=== PATIENT | male | born 1985 | race Asian ===

== ENCOUNTER 2020-02-09 08:00 | Outpatient (CLI) | payer OTHER ==
--- NOTE | 2020-02-09 21:37 | XRAY Report ---
Reason: LEFT KNEE PAIN Procedure Date: 02/09/2020 Accession Number: [id number] / [id number] Procedure: WCP - Knee 2 View LT CPT Code: Final Report FULL RESULT: EXAM: LEFT KNEE RADIOGRAPHY EXAM DATE: 02/09/2020 11:07 AM. CLINICAL HISTORY: LEFT knee pain. History of left knee injury in 2013. Continued pain. COMPARISON: None. TECHNIQUE: 2 views. FINDINGS: Bones: Normal. No fractures or bone lesions. Joints: Normal. No effusion. No subluxations. Soft Tissues: Normal. No soft tissue swelling. IMPRESSION: 1. No osseous abnormalities. RADIA
== END 2020-02-09 23:59 | disposition home or self-care (01) ==
LOC: DI.WCP 08:00
PROVIDERS: ATTEND Family Medicine
DX: M25.562 Pain in left knee (principal)

== ENCOUNTER 2020-12-09 07:00 | Outpatient (CLI) | payer OTHER ==
[2020-12-09 18:24] LABS: BASOPHILS # (AUTO) 0.1 10^3/uL (0.0-0.1); BASOPHILS % (AUTO) 1.7 %; EOSINOPHILS # (AUTO) 0.2 10^3/uL (0.0-0.7); EOSINOPHILS % (AUTO) 3.2 %; HCT - HEMATOCRIT 48.2 % (42.0-52.0); HGB - HEMOGLOBIN 15.7 g/dL (14.0-18.0); LYMPHOCYTES % (AUTO) 30.5 %; MEAN CORPUSCULAR HEMOGLOBIN 31.1 pg (27.0-31.0); MEAN CORPUSCULAR HGB CONC 32.6 g/dL (32.0-36.0); MEAN CORPUSCULAR VOLUME 95.4 fL (80.0-94.0); MEAN PLATELET VOLUME 9.6 fL (7.4-11.4); MONOCYTES # (AUTO) 0.6 10^3/uL (0.0-1.0); NEUTROPHILS # (AUTO) 3.6 10^3/uL (1.5-6.6); NEUTROPHILS % (AUTO) 55.3 %; PLT - PLATELET COUNT 283 10^3/uL (130-450); RED BLOOD COUNT 5.05 10^6/uL (4.70-6.10); RED CELL DISTRIBUTION WIDTH 12.2 % (12.0-15.0); WHITE BLOOD COUNT 6.6 x10^3/uL (4.8-10.8)
[2020-12-09 18:51] LABS: ALBUMIN 4.8 g/dL (3.2-5.5); ALBUMIN/GLOBULIN RATIO 1.7 (1.0-2.2); BILIRUBIN,TOTAL 1.1 mg/dL (0.2-1.0); CALCIUM 9.4 mg/dL (8.5-10.3); CREATININE 1.2 mg/dL (0.6-1.2); POTASSIUM 4.5 mmol/L (3.5-5.0); TOTAL PROTEIN 7.7 g/dL (6.7-8.2)
== END 2020-12-09 23:59 | disposition home or self-care (01) ==
LOC: LAB.WCP 07:00
PROVIDERS: ATTEND Family Medicine
DX: F41.9 Anxiety disorder, unspecified (principal); F32.9 Major depressive disorder, single episode, unspecified
CPT/HCPCS: 36415; 80053; 85025

== ENCOUNTER 2023-10-15 12:38 | Outpatient (CLI) | payer OTHER ==
--- NOTE | 2023-10-15 18:03 | MRI Report ---
PROCEDURE: LUMBAR SPINE WO INDICATIONS: LUMBAR RADICULOPATHY TECHNIQUE: Noncontrast sagittal T1 spin echo and T2 fast echo, sagittal STIR, axial T1 and T2 fast spin echo thr ough the lumbar spine. In cases with scoliosis, additional coronal T2 fast spin echo may be performe d. COMPARISON: Correlation is made with the accompanying cervical spine MRI. FINDINGS: Image quality: Excellent. Alignment and Curvature: There is normal bony alignment. Bone Marrow: Marrow is of normal overall signal. No acute vertebral body compression fractures. Spinal Cord: Conus medullaris terminates at the L1 level. Visualized cord demonstrates normal signa l and size. Paraspinous Soft Tissues: No paravertebral masses. T12-L1: Normal in appearance. L1-L2: Normal in appearance. L2-L3: The disc height is well-preserved. There is loss of disc signal seen. Mild disc bulge is seen. Moderate bilateral neuroforaminal narrowing can be seen. Mild central canal narrowing is see n. L3-L4: The disc height and disc signal are well preserved. Mild disc bulge is seen. A superimposed central disc protrusion is seen. Mild facet hypertrophy is seen. There is mild to moderate left-reina ed and moderate right-sided neuroforaminal narrowing. Mild central canal narrowing is seen. L4-L5: The disc height is well-preserved. There is loss of disc signal seen. Mild to moderate disc bulge is seen. A superimposed central disc protrusion is seen. Mild facet hypertrophy is seen. There is at least moderate bilateral neuroforaminal narrowing seen, right worse than left. Mild central c anal narrowing is seen. L5-S1: No significant abnormality is seen. IMPRESSION: Multiple levels of premature lumbar spine degenerative change can be seen. Reviewed by: Alessio Hicks MD on 10/15/2023 5:02 PM [facility] Approved by: Alessio Hicks MD on 10/15/2023 5:02 PM [facility] Station ID: [id number]
== END 2023-10-15 12:39 | disposition home or self-care (01) ==
LOC: DI 12:38
PROVIDERS: ATTEND Registered Nurse
DX: M47.26 Other spondylosis with radiculopathy, lumbar region (principal)

== ENCOUNTER 2023-10-15 12:43 | Outpatient (CLI) | payer OTHER ==
--- NOTE | 2023-10-15 16:35 | MRI Report ---
PROCEDURE: KNEE WO - LT INDICATIONS: PAIN IN LEFT KNEE TECHNIQUE: Noncontrast sagittal PD fast spin echo and T2 fast spin echo with fat saturation, sagittal 3-D gradie nt sequence with fat saturation; coronal T1 spin echo and PD fast spin echo with fat saturation, and axial PD fast spin echo with fat saturation through the knee. COMPARISON: None. FINDINGS: Image quality: Excellent. Menisci: The medial and lateral menisci demonstrate normal morphology and internal signal. The meni scal root ligaments appear intact. Cruciate ligaments: The anterior cruciate ligament is thickened with intrasubstance T2 hyperintense signal. The posterior cruciate ligament is intact. Medial structures: The medial collateral ligament appears intact. Visualized portions of the pes ans erinus tendons appear normal. No abnormal bursal fluid. Lateral structures: The lateral collateral ligament, long and short heads of the biceps femoris tend on appear intact. The popliteus tendon appears normal. Iliotibial band appears normal. Anterior structures: Distal quadriceps tendon is intact. Distal patella tendinosis at its anterior ti bial insertion is seen. Patellar alignment is normal. No femoral trochlear dysplasia or ventral troc hlear prominence. No edema in the infrapatellar fat pad. Bones and cartilage: No bone marrow contusions or fractures. The cartilage of the medial and latera l femorotibial compartments, as well as the patellofemoral compartment, appears normal in thickness. Joint space: There is physiologic knee joint fluid. No Campo's cyst. Normal appearing synovial pli are incidentally noted. IMPRESSION: 1. Low to moderate grade sprain/intrasubstance partial thickness tear involving anterior cruciate lig ament. No full-thickness ACL rupture. The PCL is intact. 2. Distal patella tendinosis at its anterior tibial insertion. The quadriceps tendon is intact. 3. No evidence of focal meniscal tear. 4. No marrow edema. No fracture or dislocation. Articulating cartilages are grossly intact. Reviewed by: Jamar Ken MD on 10/15/2023 4:34 PM PST Approved by: Jamar Ken MD on 10/15/2023 4:34 PM PST Station ID: [id number]
== END 2023-10-15 12:44 | disposition home or self-care (01) ==
LOC: DI 12:43
PROVIDERS: ATTEND Registered Nurse
DX: S83.512A Sprain of anterior cruciate ligament of left knee, initial encounter (principal); M67.864 Other specified disorders of tendon, left knee

== ENCOUNTER 2023-10-15 12:44 | Outpatient (CLI) | payer OTHER ==
--- NOTE | 2023-10-15 18:00 | MRI Report ---
PROCEDURE: Cervical Spine WO INDICATIONS: CERVICAL PAIN TECHNIQUE: Noncontrast sagittal T1 spin echo and T2 fast spin echo, sagittal STIR, foraminal oblique sagittal T2 fast spin echo, and axial gradient echo or T2 fast spin echo through the cervical spine. COMPARISON: Correlation is made with the accompanying lumbar spine MRI. FINDINGS: Image quality: Excellent. Alignment and Curvature: There is straightening of the normal cervical lordosis. Bone Marrow: Marrow demonstrates normal overall signal. Spinal Cord: Visualized spinal cord has normal size and signal. No cerebellar tonsillar herniation. Paraspinous Soft Tissues: No paravertebral masses. Prevertebral soft tissues are normal in thicknes s. C2-C3: The disc height and disc signal are well preserved. Mild disc osteophyte complex is seen, whi ch is eccentric to the right. No significant neural foraminal or central canal narrowing can be seen. C3-C4: The disc height and disc signal are well preserved. Mild disc osteophyte complex is seen, wh ich is eccentric to the right, with a right foraminal disc osteophyte protrusion, as on series 6 imag e 14. There is minimal right-sided and no significant left-sided neuroforaminal narrowing. No central canal narrowing is seen. C4-C5: The disc height and disc signal are well preserved. Mild disc osteophyte complex is seen. N o significant neural foraminal or central canal narrowing can be seen. C5-C6: The disc height and disc signal are well preserved. Mild disc osteophyte complex is seen. No significant neural foraminal or central canal narrowing can be seen. C6-C7: Normal in appearance. C7-T1: Normal in appearance. IMPRESSION: Mild cervical spine degenerative changes are seen, which are worst superiorly. Reviewed by: Alessio Hicks MD on 10/15/2023 4:59 PM AKST Approved by: Alessio Hicks MD on 10/15/2023 4:59 PM [place] Station ID: [id number]
== END 2023-10-15 12:45 | disposition home or self-care (01) ==
LOC: DI 12:44
PROVIDERS: ATTEND Registered Nurse
DX: M47.812 Spondylosis without myelopathy or radiculopathy, cervical region (principal); M25.78 Osteophyte, vertebrae; M48.02 Spinal stenosis, cervical region

== ENCOUNTER 2023-10-22 13:41 | Outpatient (CLI) | payer OTHER ==
--- NOTE | 2023-10-23 13:24 | Ultrasound Report ---
PROCEDURE: Renal (Retroperitoneal) INDICATIONS: CKD TECHNIQUE: Real-time scanning was performed of the retroperitoneal organs, with image documentation. COMPARISON: None. FINDINGS: Kidneys: Kidneys are normal in size. Right kidney measures 9.6 cm long; left kidney measures 10.3 c m long. Right renal cortical thickness is 1.1 cm; left renal cortical thickness is 0.9 cm. No solid masses, hydronephrosis, or nephrolithiasis. Bladder: Pre-void bladder volume is 60 mL. Post-void residual is 25 mL. Pre-void images demonstrat e no intraluminal masses or stones. On pre-void images, bilateral ureteral jets are noted with color Doppler interrogation. (Of note, ureteral jets may not be detectable in up to 25% of cases due to i nsufficient differences in specific gravity between ureteral and bladder urine). Miscellaneous: No free abdominal fluid. The visible portion of the prostate gland measures 3.0 x 4. 4 x 3.5 cm. IMPRESSION: Normal renal morphology without evidence of obstructive uropathy. Partially filled and grossly normal urinary bladder. Reviewed by: Merlyn Conner MD on 10/23/2023 1:22 PM PST Approved by: Merlyn Conner MD on 10/23/2023 1:22 PM PST Station ID: [id number]
== END 2023-10-22 13:42 | disposition home or self-care (01) ==
LOC: DI 13:41
PROVIDERS: ATTEND Registered Nurse
DX: N18.2 Chronic kidney disease, stage 2 (mild) (principal)